=== PATIENT | female | born 2000 ===

== ENCOUNTER 2018-02-22 13:37 | Emergency (ER) | payer BC ==
[2018-02-22] MEDS ORDERED: Acetaminophen TAB* 325 MG PO ONE (14:15)
--- NOTE | 2018-02-22 14:32 | ED ---
Lower Extremity - HPI Summary HPI Summary: Patient is a 17-year-old female who presents emergency department for a right ankle injury that occurred just prior to arrival. Patient is currently a student at a local college and was walking down the steps at her dormitory when she tripped and twisted her right ankle. Unable to bear weight. No other injuries were sustained. Admits to initial paresthesias which have resolved. Moving and touching ankle makes symptoms worse. Rest makes symptoms better. No significant past medical history. - History of Current Complaint Chief Complaint: EDExtremityLower Stated Complaint: RT ANKLE INJURY Time Seen by Provider: 02/22/18 13:59 Hx Obtained From: Patient Hx Last Menstrual Period: HAVING PERIOD NOW Pain Intensity: 6 - Allergies/Home Medications Allergies/Adverse Reactions: Allergies Allergy/AdvReac Type Severity Reaction Status Date / Time No Known Allergies Allergy Verified 02/22/18 14:01 Home Medications: Home Medications NK [No Home Medications Reported] 02/22/18 [History Confirmed 02/22/18] PMH/Surg Hx/FS Hx/Imm Hx Previously Healthy: Yes Endocrine/Hematology History: Denies: Hx Diabetes, Hx Thyroid Disease Cardiovascular History: Denies: Hx Hypertension Respiratory History: Reports: Hx Asthma - SPORTS INDUCED Denies: Hx Chronic Obstructive Pulmonary Disease (COPD) GI History: Denies: Hx Ulcer Psychiatric History: Denies: Hx Anxiety, Hx Depression Infectious Disease History: No Infectious Disease History: Denies: Hx Hepatitis, Hx Human Immunodeficiency Virus (HIV), Traveled Outside the [place] in Last 30 Days - Family History Known Family History: Positive: None - Social History Occupation: Student Lives: Dormitory/Roommates Alcohol Use: Weekly Alcohol Amount: once weekly on the weekends Substance Use Type: Reports: None Smoking Status (MU): Never Smoked Tobacco Review of Systems Constitutional: Negative Positive: Other - pain and swelling to right ankle Neurological: Negative Negative: Weakness, Paresthesia, Numbness All Other Systems Reviewed And Are Negative: Yes Physical Exam Triage Information Reviewed: Yes Vital Signs On Initial Exam: Initial Vitals Temp Pulse Resp BP Pulse Ox 98.1 F 64 16 149/84 100 02/22/18 13:57 02/22/18 13:57 02/22/18 13:57 02/22/18 13:57 02/22/18 13:57 Vital Signs Reviewed: Yes Appearance: Positive: Well-Appearing - Patient lying on stretcher in no acute distress. Splint on right ankle. Friends at present. Skin: Positive: Warm, Dry Musculoskeletal: Positive: Other - Marked edema noted to the right lateral ankle. Good palpable pedal pulse. No wounds. Mild proximal tib-fib pain. No knee pain. No pain to the foot or the base of the fifth metatarsal. Achilles tendon is intact. Neurological: Positive: CN Intact II-III Procedures - Splinting Pre-Made Type: aircast Pre-Proc Neuro Vasc Exam: normal Post-Proc Neuro Vasc Exam: normal Diagnostics - Vital Signs Vital Signs Temp Pulse Resp BP Pulse Ox 02/22/18 13:57 98.1 F 64 16 149/84 100 - Laboratory Lab Statement: Any lab studies that have been ordered have been reviewed, and results considered in the medical decision making process. Lower Extremity Course/Dx - Course Course Of Treatment: Patient presenting to the ER for right ankle injury. She was given a dose of Tylenol for pain. X-rays of ankle and tib-fib show soft tissue swelling without fracture or dislocation, reading per myself and radiology. Results were discussed. Ankle was splinted and crutched. Will refer her to orthopedics for further evaluation of ligamental damage. Advised to ice and elevate. Tylenol or Motrin for pain as directed. Patient understands and agrees with plan. - Diagnoses Differential Diagnosis/HQI/PQRI: Positive: Fracture (Closed), Sprain, Strain Provider Diagnoses: Ankle sprain Discharge - Sign-Out/Discharge Documenting (check all that apply): Discharge - Discharge Plan Condition: Good Disposition: HOME Patient Education Materials: Ankle Sprain (ED) Referrals: No Primary Care Phys,NOPCP [Primary Care Provider] - Arlette Maya MD [Medical Doctor] - Additional Instructions: Call Dr. Maya's office today to schedule an appointment Ice and elevate Use splint and crutches Tylenol or Motrin for pain as directed - Billing Disposition and Condition Condition: GOOD Disposition: HOME
--- NOTE | 2018-02-22 15:27 | RAD ---
INDICATION: Right ankle injury COMPARISON: None TECHNIQUE: AP, lateral, and oblique views were obtained. FINDINGS: There is no acute fracture. The ankle mortise is intact There is lateral soft tissue swelling. IMPRESSION: LATERAL SOFT TISSUE SWELLING
--- NOTE | 2018-02-22 15:27 | RAD ---
INDICATION: Right ankle injury. Right leg pain COMPARISON: None TECHNIQUE: AP and lateral views were obtained. FINDINGS: The bony structures, joint spaces, and soft tissues are normal for age. IMPRESSION: NEGATIVE EXAMINATION.
[2018-02-22 16:30] VITALS: BP 134/83
== END 2018-02-22 16:25 | disposition home or self-care (01) ==
LOC: ED 13:37
DX: S99.911A Unspecified injury of right ankle, initial encounter (principal); X58.XXXA Exposure to other specified factors, initial encounter; Y92.9 Unspecified place or not applicable
CPT/HCPCS: 99282; A9270-GY